=== PATIENT | male | born 1975 | race Caucasian/White ===

== ENCOUNTER 2024-12-10 10:02 | Outpatient (CLI) | payer OTHER | END 2024-12-10 10:03 | disposition home or self-care (01) | LOC: RAD 10:02 | PROVIDERS: ATTEND Otolaryngology Plastic Surgery within the Head & Neck | DX: R13.14 Dysphagia, pharyngoesophageal phase (principal); R63.30 Feeding difficulties, unspecified | CPT/HCPCS: 74230 ==